=== PATIENT | female | born 1950 | race African-American/Black ===

== ENCOUNTER 2018-05-21 13:17 | Outpatient (CLI) | payer MEDICARE, OTHER ==
[~2018-05-21] VITALS: Ht 175.3 cm; Wt 70.8 kg
[2018-05-21 15:22] VITALS: BP 145/66
[2018-05-21] MEDS ORDERED: CONTOUR1 EACH MC (15:29)
[2018-05-21] MEDS ORDERED: AMLODIPINE BESY10 MG ORAL (15:29)
[2018-05-21] MEDS ORDERED: CRESTOR10 M2 ORAL (15:29)
[2018-05-21] MEDS ORDERED: CATAPRES0.1 MG ORAL (15:29)
[2018-05-21] MEDS ORDERED: GABAPENTIN100 MG ORAL (15:29)
[2018-05-21] MEDS ORDERED: JANUVIA25 MG ORAL (15:29)
[2018-05-21] MEDS ORDERED: ZETIA10 MG ORAL (15:29)
[2018-05-21] MEDS ORDERED: PLAVIX75 MG ORAL (15:29)
[2018-05-21] MEDS ORDERED: METOPROLOL TAR100 M1 ORAL (15:29)
[2018-05-21] MEDS ORDERED: LOSARTAN POTASS50 MG ORAL (15:29)
[2018-05-21] MEDS ORDERED: VITAMIN D1000 UNI1 ORAL (15:29)
--- NOTE | 2018-05-22 15:22 | GI Initial Consult Note ---
History of Present Illness General Date patient seen: May 21, 2018 Time patient seen: 15:00 Referring physician: YAYA Reason for Consultation: COLONOSCOPY Present Illness HPI 68 year old female patient presents today for colonoscopy screening. Patient has no history of colonoscopy. Presents today with no GI symptoms; denies abdominal pain, N/V/D or constipation. Denies any unintentional weight loss or changes in dietary habits. Home Meds Reported Medications Blood Sugar Diagnostic (CONTOUR) 1 Each Strip, 1 EACH MC, STRIP 05/21/18 Clonidine Hcl* (CATAPRES*) 0.1 Mg Tablet, 0.1 MG ORAL EVERY 6 HOURS, TAB 05/21/18 Sitagliptin* (JANUVIA*) 25 Mg Tablet, 50 MG ORAL DAILY, TAB 05/21/18 Amlodipine Besylate* (AMLODIPINE BESYLATE*) 10 Mg Tablet, 10 MG ORAL DAILY, TAB 05/21/18 Rosuvastatin Calcium* (CRESTOR*) 10 Mg Tablet, 10 MG ORAL DAILY, TAB 05/21/18 Ezetimibe (ZETIA*) 10 Mg Tablet, 10 MG ORAL BEDTIME, TAB 05/21/18 Cholecalciferol (Vitamin D3)* (VITAMIN D*) 1,000 Unit Tablet, ORAL DAILY, #30 TAB 05/21/18 Metoprolol Tartrate* (METOPROLOL TARTRATE*) 100 Mg Tablet, 100 MG ORAL EVERY 12 HOURS, TAB 05/21/18 Gabapentin* (GABAPENTIN*) 100 Mg Capsule, 100 MG ORAL THREE TIMES A DAY, CAP 05/21/18 Losartan Potassium* (LOSARTAN POTASSIUM*) 50 Mg Tablet, 50 MG ORAL DAILY, TAB 05/21/18 Clopidogrel Bisulfate* (PLAVIX*) 75 Mg Tablet, 75 MG ORAL DAILY, TAB 05/21/18 Med list reviewed/reconciled: Yes Allergies: Coded Allergies: No Known Allergies (Unverified , 05/21/18) Patient History History Provided By: Patient, Medical Record PMH Narrative CVA 2016 HTN DM Past Surgical History: Left Ectopic Social History: Denies: smoking, alcohol use, drug use, other Review of Systems All Other Systems: negative except mentioned in HPI Physical Exam Vital Signs Date Time Temp Pulse Resp B/P (MAP) Pulse Ox O2 Delivery O2 Flow Rate FiO2 05/21/18 15:22 98.1 53 16 145/66 100 Sp02 EP Interpretation: reviewed, normal General Appearance: well appearing, no apparent distress, alert Head: normocephalic EENT: PERRL/EOMI, normal ENT inspection Neck: supple Respiratory: normal breath sounds, no respiratory distress Cardiovascular: normal rate Gastrointestinal: normal inspection, non tender, soft, normal bowel sounds, non -distended Rectal: deferred Genitourinary: no CVA tenderness Musculoskeletal: normal inspection, back normal Neurologic: normal inspection, alert, oriented x3, responsive Psychiatric: normal inspection, judgement/insight normal, memory normal Skin: normal inspection, normal color, no rash, warm/dry, palpation normal, well hydrated Lymphatic: normal inspection, no adenopathy GI: Plan Problems: (1) Colonoscopy planned (2) CVA (cerebral vascular accident) (3) HTN (hypertension) (4) Diabetes mellitus Plan colonoscopy to be scheduled, patient will call to book. - CLD & (Nulytely/Suprep/Movi-Prep) prep instructions given and acknowledged by patient. - NPO @ [place] day prior procedure explained. will follow with additional recs post procedure. Seen with Dr. Cuello. Thank you for this patient referral. The patient was seen and examined at bedside and all new and available data was reviewed in the patients chart. I agree with the above findings, impression and plan. (Patient seen earlier today. Signature stamp does not reflect patient encounter time.). - MD Carolee RichardsW[facility] SE[facility]ATOR TENDER May 22, 2018 15:22
== END 2018-05-21 13:47 | disposition home or self-care (01) ==
LOC: PAN 13:17
DX: Z12.11 Encounter for screening for malignant neoplasm of colon (principal); I63.9 Cerebral infarction, unspecified; I10 Essential (primary) hypertension; E11.9 Type 2 diabetes mellitus without complications
CPT/HCPCS: 99202

== ENCOUNTER 2018-09-01 15:43 | Inpatient (IN) | payer MEDICARE, OTHER ==
[~2018-09-01] VITALS: Ht 175.3 cm; Wt 64.9 kg
[~2018-09-01 15:43] MED LIST: AMLODIPINE BESY10 MG ORAL; CATAPRES0.1 MG ORAL; CONTOUR1 EACH MC; CRESTOR10 M2 ORAL; GABAPENTIN100 MG ORAL; JANUVIA25 MG ORAL; LOSARTAN POTASS50 MG ORAL; METOPROLOL TAR100 M1 ORAL; PLAVIX75 MG ORAL; VITAMIN D1000 UNI1 ORAL; ZETIA10 MG ORAL
[2018-09-01] MEDS ORDERED: UNOBMED (15:56)
--- NOTE | 2018-09-01 16:05 | NUR ---
ED Nurse Note: patient was brought in by RA fron the DR's office, patient has impaired mobility, unsteady gait, AAO x 4, skin is dry, intact. per pt. she went for regular chek up and her Dr sent her to S ER. patient was placed in gown and connected to the monitor. will continue to monitor
[2018-09-01 16:10] VITALS: BP 250/124
--- NOTE | 2018-09-01 16:12 | Emergency Room Report ---
History of Present Illness General Chief Complaint: Dizziness Source: Patient Present Illness HPI Patient is a 68-year-old female sent to ER from physician's office after increased elevated blood pressure. Patient had been having increased dizziness as well as left lower extremity heaviness. Patient prior history of hypertension. she does not require not recall what medication she takes. She reported having a fall approximately 4 days ago. She states she has been taking BC powder for headaches. She reports having some difficulty with hearing. Allergies: Coded Allergies: No Known Allergies (Unverified , 09/01/18) Patient History Past Medical History: see triage record Last Menstrual Period: 12 YEARS AGO Now: No Reviewed Nursing Documentation: PMH: Agreed; PSxH: Agreed Nursing Documentation-PMH Past Medical History: No History, Except For Hx Hypertension: Yes Hx Diabetes: Yes Hx Cancer: No Hx Gastrointestinal Problems: No Hx Neurological Problems: Yes Hx Cerebrovascular Accident: Yes - 2015 Review of Systems All Other Systems: negative except mentioned in HPI Physical Exam Vital Signs Date Time Temp Pulse Resp B/P (MAP) Pulse Ox O2 Delivery O2 Flow Rate FiO2 09/01/18 15:51 99.0 81 16 250/124 96 Sp02 EP Interpretation: reviewed, normal General Appearance: normal inspection, well appearing, no apparent distress, alert, GCS 15 Head: atraumatic ENT: normal ENT inspection, hearing grossly normal, normal voice Neck: normal inspection, full range of motion, supple, no bony tend Respiratory: normal inspection, lungs clear, normal breath sounds, no respiratory distress, no retraction, no wheezing Cardiovascular #1: regular rate, rhythm, no edema Gastrointestinal: normal inspection, normal bowel sounds, non tender, soft, no guarding, no hernia Genitourinary: no CVA tenderness Musculoskeletal: normal inspection, back normal, normal range of motion Neurologic: normal inspection, alert, oriented x3, responsive, 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 Differential diagnosis include was not limited to CVA, hypertensive crisis, acute renal failure among others. Because of complexity of patient's case laboratory testing and imaging studies were ordered. Patient was noted to have CT imaging of the head read by radiology with multiple lacunar infarcts of indeterminate age. Patient is given medications for hypertension with some improvement. EKG interpreted by me showed normal sinus rhythm with a rate of 75 with left ventricular hypertrophy and nonspecific T wave changes. Patient was noted to have markedly elevated blood pressure. This had responded to medications patient given IV Lasix. BNP was noted to be markedly elevated.Patient's initial troponin was noted to be negative.Dr. Luis Mcfarlane was contacted for inpatient management due to primary care physician. Labs Test 09/01/18 16:15 White Blood Count 6.1 K/UL (4.8-10.8) Red Blood Count 5.02 M/UL (4.20-5.40) Hemoglobin 12.6 G/DL (12.0-16.0) Hematocrit 39.7 % (37.0-47.0) Mean Corpuscular Volume 79 FL (80-99) Mean Corpuscular Hemoglobin 25.1 PG (27.0-31.0) Mean Corpuscular Hemoglobin Concent 31.7 G/DL (32.0-36.0) Red Cell Distribution Width 14.6 % (11.6-14.8) Platelet Count 162 K/UL (150-450) Mean Platelet Volume 7.8 FL (6.5-10.1) Neutrophils (%) (Auto) 53.2 % (45.0-75.0) Lymphocytes (%) (Auto) 38.2 % (20.0-45.0) Monocytes (%) (Auto) 6.3 % (1.0-10.0) Eosinophils (%) (Auto) 1.3 % (0.0-3.0) Basophils (%) (Auto) 1.1 % (0.0-2.0) Urine Color Pale yellow Urine Appearance Clear Urine pH 5 (4.5-8.0) Urine Specific [place] 1.010 (1.005-1.035) Urine Protein 4+ (NEGATIVE) Urine Glucose (UA) Negative (NEGATIVE) Urine Ketones Negative (NEGATIVE) Urine Blood 2+ (NEGATIVE) Urine Nitrite Negative (NEGATIVE) Urine Bilirubin Negative (NEGATIVE) Urine Urobilinogen Normal MG/DL (0.0-1.0) Urine Leukocyte Esterase 2+ (NEGATIVE) Urine RBC 2-4 /HPF (0 - 2) Urine WBC 5-10 /HPF (0 - 2) Urine Squamous Epithelial Cells Few /LPF (NONE/OCC) Urine Bacteria Few /HPF (NONE) Sodium Level 139 MMOL/L (136-145) Potassium Level 3.7 MMOL/L (3.5-5.1) Chloride Level 102 MMOL/L (98-107) Carbon Dioxide Level 27 MMOL/L (21-32) Anion Gap 10 mmol/L (5-15) Blood Urea Nitrogen 28 mg/dL (7-18) Creatinine 2.3 MG/DL (0.55-1.30) Estimat Glomerular Filtration Rate 25.6 mL/min (>60) Glucose Level 89 MG/DL (74-106) Calcium Level 10.6 MG/DL (8.5-10.1) Total Bilirubin 1.5 MG/DL (0.2-1.0) Direct Bilirubin 0.3 MG/DL (0.0-0.3) Aspartate Amino Transf (AST/SGOT) 25 U/L (15-37) Alanine Aminotransferase (ALT/SGPT) 20 U/L (12-78) Alkaline Phosphatase 94 U/L (46-116) Troponin I 0.005 ng/mL (0.000-0.056) Pro-B-Type Natriuretic Peptide 1196 pg/mL (0-125) Total Protein 8.6 G/DL (6.4-8.2) Albumin 4.3 G/DL (3.4-5.0) Globulin 4.3 g/dL Albumin/Globulin Ratio 1.0 (1.0-2.7) Lipase 603 U/L (73-393) Thyroid Stimulating Hormone (TSH) 1.770 uiU/mL (0.358-3.740) Urine Opiates Screen Negative (NEGATIVE) Urine Barbiturates Screen Negative (NEGATIVE) Phencyclidine (PCP) Screen Negative (NEGATIVE) Urine Amphetamines Screen Negative (NEGATIVE) Urine Benzodiazepines Screen Negative (NEGATIVE) Urine Cocaine Screen Negative (NEGATIVE) Urine Marijuana (THC) Screen Negative (NEGATIVE) EKG Diagnostic Results Rate: normal - 75 Rhythm: NSR ST Segments: no acute changes Last Vital Signs Date Time Temp Pulse Resp B/P (MAP) Pulse Ox O2 Delivery O2 Flow Rate FiO2 09/01/18 15:51 99.0 81 16 250/124 96 Status: improved Disposition: ADMITTED INPATIENT Condition: Cabrera Smith MD Sep 01, 2018 16:11
--- NOTE | 2018-09-01 16:30 | NUR ---
ED Nurse Note: BLOOD SPECIMENS AND URINE SENT DOWN TO THE LAB.
[2018-09-01 16:49] LABS: APPEARANCE,URINE CLEAR; BILIRUBIN, URINE NEGATIVE (NEGATIVE); COLOR,URINE PALE YELLOW; GLUCOSE, URINE (UA) NEGATIVE (NEGATIVE); KETONES,URINE NEGATIVE (NEGATIVE); LEUKOCYTE ESTERASE ,URINE 2+ (NEGATIVE); NITRITE,URINE NEGATIVE (NEGATIVE); PH,URINE 5 (4.5-8.0); PROTEIN,URINE 4+ (NEGATIVE); UROBILINOGEN,URINE NORMAL MG/DL (0.0-1.0)
[2018-09-01 16:51] LABS: BASOPHILS % (AUTO) 1.1 % (0.0-2.0); EOSINOPHILS % (AUTO) 1.3 % (0.0-3.0); HEMATOCRIT 39.7 % (37.0-47.0); HEMOGLOBIN 12.6 G/DL (12.0-16.0); LYMPHOCYTES % (AUTO) 38.2 % (20.0-45.0); MEAN CORPUSCULAR VOLUME 79 FL (80-99); MONOCYTES % (AUTO) 6.3 % (1.0-10.0); NEUTROPHILS % (AUTO) 53.2 % (45.0-75.0); PLATELET COUNT 162 K/UL (150-450); RED BLOOD COUNT 5.02 M/UL (4.20-5.40); RED CELL DISTRIBUTION WIDTH 14.6 % (11.6-14.8); WHITE BLOOD COUNT 6.1 K/UL (4.8-10.8)
[2018-09-01 16:57] LABS: ANION GAP 10 mmol/L (5-15); BLOOD UREA NITROGEN 28 mg/dL (7-18); CALCIUM 10.6 MG/DL (8.5-10.1); CARBON DIOXIDE 27 MMOL/L (21-32); CHLORIDE 102 MMOL/L (98-107); CREATININE 2.3 MG/DL (0.55-1.30); POTASSIUM 3.7 MMOL/L (3.5-5.1); SODIUM 139 MMOL/L (136-145)
--- NOTE | 2018-09-01 17:05 | Diagnostic Imaging Report ---
Indications: Headache and dizziness Technique: Spiral acquisitions obtained through the brain. Angled axial and coronal 5 x 5 mm slices were reconstructed. Total dose length product 1372.57 mGycm. CTDI vol(s) 70.38 mGy. Dose reduction achieved using automated exposure control Comparison: None. Findings: No acute intercranial hemorrhage nor edema. No mass effect nor midline shift. Visualized orbits are unremarkable. There is ethmoid sinus disease. The calvarium is intact. Olivia-white differentiation is normal. Impression: Age-indeterminate, although suspect old, right basal ganglia and internal capsule lacunar infarcts. MRI may be useful to clarify acuity if clinically indicated Negative for acute intracranial bleed or mass effect The CT scanner at [facility] is accredited by the [employer] and the scans are performed using protocols designed to limit radiation exposure to as low as reasonably achievable to attain images of sufficient resolution adequate for diagnostic evaluation.
[2018-09-01 17:13] LABS: ALANINE AMINOTRANSFERASE 20 U/L (12-78); ALBUMIN 4.3 G/DL (3.4-5.0); ALKALINE PHOSPHATASE 94 U/L (46-116); ASPARTATE AMINO TRANSFERASE 25 U/L (15-37); BILIRUBIN,TOTAL 1.5 MG/DL (0.2-1.0)
[2018-09-01 17:14] LABS: BILIRUBIN,DIRECT 0.3 MG/DL (0.0-0.3)
[2018-09-01] MEDS ORDERED: CRESTOR40 MG ORAL (17:57)
[2018-09-01] MEDS ORDERED: ASCORBIC ACID500 MG ORAL (18:02)
--- NOTE | 2018-09-01 18:16 | NUR ---
ED Nurse Note: patient' BP ia 223/110, patient refused Lasix. RN explained effect of that medication, but any ways pt. refused, ERMD noyified
--- NOTE | 2018-09-01 18:49 | NUR ---
ED Nurse Note: patient decided to take Lasix, CECI notifyed
--- NOTE | 2018-09-01 19:18 | NUR ---
HAND-OFF: Report given to JILLIAN Merlos. No s/s of distress.
[2018-09-01 19:25] VITALS: BP 170/81
--- NOTE | 2018-09-01 19:30 | NUR ---
ED Nurse Note: Flat affect noted.
--- NOTE | 2018-09-01 19:30 | NUR ---
Note undone in EDM - 09/02/18 at 0419 by STEPHANIE ED Nurse Note: PT is alert and oriented times 4. no skin issues noted. pt pupiles are round and reactive to light. no deformities noted to mouth. pt heart tones are within normal limits with S1 and S2 noted. pts lung sounds are clear on all quadrats. 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 cap refill on both hands is less than 3 with pulse and sensation noted. pt cap refill is less than 3. pt bowel sounds are within normal limts on all 4 quadrants. no abnormalities noted on vaginal or rectal area.pt L leg strength is 4/5 with weakness noted. cap refill is less than 3 on both feet with pulse and sensation noted. pt is able to ambulate with a weak gait. fall precautions are taken into affect with the bed set on the lowest settings and call light within reach. vital signs are stable.
--- NOTE | 2018-09-01 19:30 | NUR ---
ED Nurse Note: Received, Pt is alert and oriented times 4, PERRLA; Clarita equaly and spontaniously. monitor SR, no ectopy. Lungs sounds clear and equal. Abdomen soft, non tender. Pt is able to ambulate with minimal assist. Skin intact. BP at this time is 170/81.
[2018-09-01 19:32] VITALS: BP 167/92
[2018-09-01 21:26] VITALS: BP 165/81
--- NOTE | 2018-09-01 21:30 | NUR ---
Michael stewart in EDM - 09/02/18 at 0309 by STEPHANIE ED Nurse Note: MD JAVIER was called for admitting order. did not answer.
--- NOTE | 2018-09-01 21:30 | NUR ---
ED Nurse Note: MD JAVIER was called for admitting order.
[2018-09-01 23:21] VITALS: BP 168/83
--- NOTE | 2018-09-01 23:35 | NUR ---
Michael stewart in EDM - 09/02/18 at 0307 by STEPHANIE ED Nurse Note: MD JAVIER was texted for admitting orders, no response.
--- NOTE | 2018-09-01 23:35 | NUR ---
Michael stewart in EDM - 09/02/18 at 0309 by STEPHANIE ED Nurse Note: MD JAVIER was called for admitting order.
--- NOTE | 2018-09-01 23:35 | NUR ---
ED Nurse Note: MD JAVIER was texted for admitting orders.
--- NOTE | 2018-09-01 23:42 | NUR ---
Michael stewart in EDM - 09/02/18 at 0307 by STEPHANIE ED Nurse Note: MD JAVIER was called for admitting order. did not answer.
[2018-09-02] VITALS (8 sets, daily range): BP systolic 118–157; BP diastolic 66–95
[2018-09-02] MEDS ORDERED: cloNIDine 0.2mg Tab ORAL ONE (00:15)
--- NOTE | 2018-09-02 06:27 | NUR ---
ED Nurse Note: Dr. Mcfarlane called and will come in.
--- NOTE | 2018-09-02 07:30 | NUR ---
ED Nurse Note: pt care assummed. pt awake and oriented x 4. relates no dyspnea. states right-sided headache with pressure to right ear and lateral neck area. vss. pt awaiting eval by pmd for further orders. pt assisted to bedside commode. tolerates well. pt noted to have swollen upper lip, pt states she fell last week and sustained injury then. denies cp. denies dizziness with getting out of bed.
--- NOTE | 2018-09-02 11:00 | NUR ---
NURSE NOTES: Report received from LINH Mireles RN. Patient to be on the floor within 10min.
--- NOTE | 2018-09-02 11:04 | NUR ---
ED Nurse Note: pt report given to tele. pt preapred to go to floor with rn/acls protocol. pt remains a/ox4 upon transport
--- NOTE | 2018-09-02 11:10 | NUR ---
NURSE NOTES: Patient came in on the floor with hospital bed. Belongings checked with patient and JILLIAN Mireles. Signed and filed. driving teacher applied. Patient came in for uncontrolled HTN, now BP 137/78, P 73. VS stable. Patient in RA, denies any SOB or pain. Oriented to hospital rules. Bed on lowest position, side rails upx2, brakes engaged. Call light within easy reach.
--- NOTE | 2018-09-02 14:41 | NUR ---
ST NOTE: BEDSIDE SWALLOW EVAL RECEIVED BEDSIDE SWALLOW EVAL ORDER CHART REVIEWED PRIOR THE EVALUATION PT IS A 68-YEAR-OLD FEMALE WHO WAS ADMITTED DUE TO HYPERTENSIVE CRISIS. DYSPHAGIA RISK FACTORS: CVA(2016), MULTIPLE LACUNAR INFARCTS, HTN, DM, CARDIAC DISORDER. PER CT HEAD: AGE-INDETERMINATE ALTHOUGH SUSPECT OLD, R BASAL GANGLIA AND INTERNAL CAPSULE LACUNAR INFARCT. PLOF: PT RESIDES AT HOME. CURRENT STATUS: PT SEEN AT BEDSIDE IN PM. ALERT, COOPERATIVE, SEEMS DEPRESSED. PER PT, HER MEMORY SEEMS DECLINING, AND "HARD FOR HER TO THINK" PER RN, PT ATE 50% OF LUNCH WITHOUT ANY DIFFICULTY. PER PT, FELL A FEW TIMES AT HOME, HAS OVERALL WEAKNESS. SOFT VOICE IS NOTED. DISORGANIZED THOUGHTS AND POOR INSIGHT WERE ALSO NOTED. GIVEN PO TRIALS: THIN(CUP-SELF), PUREE(TSP) AND CRACKER (ONE BITE) INITIAL IMPRESSION: GOOD DENTITION SLOW BUT FUNCTIONAL MASTICATION TIME MIN INCREASED ORAL TRANSIT TIME AND OROPHARYNGEAL TRANSIT TIME, FAIR TO GOOD LARYNGEAL ELEVATION, NO OVERT S/S OF ASPIRATION. OVERALL, PT'S SWALLOWING SEEMS FUNCTIONAL. DUE TO PT HAS H/O CVA AND CURRENT HYPERTENSIVE CRISIS, PT HAS RISK FOR (SILENT) ASPIRATION. RECOMMENDATIONS: 1. CHANGE DIET TO CARDIAC SOFT, EASY CHEW WITH THIN LIQUIDS DIET 2. STRICT ASPIRATION PRECAUTIONS WITH SUPERVISION 3. VIDEOSWALLOW STUDY IF NEEDED. 4. SPEECH/LANGUAGE/COGNITION EVAL AND TX. 5. CONSIDER PSYCH EVAL RE: PT'S EMOTION. D/W PT AND RNCASSIDY POSTED ASPIRATION PRECAUTIONS SIGN.
--- NOTE | 2018-09-02 15:53 | Cardiology Report ---
APPROVED REPORT EKG Measurement Heart [id number] Normal sinus rhythm Voltage criteria for left ventricular hypertrophy Cannot rule out Septal infarct, age undetermined Abnormal ECG
--- NOTE | 2018-09-02 19:20 | NUR ---
HAND-OFF: Report given to JILLIAN Obrien. Addendum: 09/02/18 at 2019 by LAZARO EUCEDA RN RN charting in wrong patient.
[2018-09-02] MEDS: Atorvastatin 80mg tab ORAL SCH (20:40)
[2018-09-02] MEDS: Heparin 5000 units/ml inj SUBQ SCH (20:41)
[2018-09-02] MEDS: NovoLOG Insulin Flexpen SUBQ SCH (21:00)
--- NOTE | 2018-09-02 21:17 | NUR ---
CASE MANAGEMENT: REVIEW 68/F PRESENTED TO ED FROM HOME CC: DIZZINESS SI: UNCONTROLLED HYPERTENSION T 99.0 HR 81 RR 20 BP 250/124 SAT 96% ROOM AIR BUN 28 CR 2.3 IS: CLONIDINE 0.2MG PO X1 LASIX 20MG IV X1 NORVASC 10MG PO X1 HYDRALAZINE 20MG IV X1 PATIENT ADMITTED TO TELEMETRY UNIT 09/01/2018 DCP: PATIENT IS FROM HOME
--- NOTE | 2018-09-02 22:45 | History and Physical Report ---
DATE OF ADMISSION: 09/01/2018 REASON FOR ADMISSION: Blood pressure out of control, multiple falls, possible subacute stroke. HISTORY: This is a 68-year-old female sent over to the emergency room due to significantly elevated blood pressure of over 200. The patient also had worsening dizziness and difficulty with ambulating. The patient unable to care for herself at home. The patient reports frequent falls and significant forehead and lip edema as a result. She has been taking pain medications and also has some difficulty hearing. In the emergency room, the patient did undergo evaluation and testing and now admitted for further evaluation and further optimization. She also was noted to have elevated renal function of unclear timeline. The patient overnight improved with blood pressure and hemodynamics improved. The patient's care discussed and reviewed. The patient has been under the care in the office setting. PAST MEDICAL HISTORY: Notable for abnormal EKG, coronary artery disease, diabetes, hypercholesterolemia, hypertension, stroke. MEDICATIONS: Reviewed and reconciled. ALLERGIES: Reviewed and reconciled. PAST SURGICAL HISTORY: Negative. FAMILY HISTORY: Notable for stroke and kidney failure. HABITS: Nonsmoker, nondrinker. SOCIAL SETTING: She is and has 2 children, but lives alone. REVIEW OF SYSTEMS: All 10 points reviewed. The patient with increasing fatigue, swelling of the lip, difficulty swallowing, significant joint and muscle pain. The patient had multiple falls. PHYSICAL EXAMINATION: GENERAL: Appears to be chronically ill. VITAL SIGNS: Blood pressure 118/66, pulse 73, respiratory rate 16, saturations 99%, temperature 98. HEENT: Negative. Extraocular movements are grossly intact. The patient has lip swelling on examination and some forehead asymmetry. NECK: Supple. LUNGS: Fairly clear and symmetric. No rhonchi or wheezes. CARDIAC: Normal S1, S2. Regular rate and rhythm without murmurs, rubs, or gallops. ABDOMEN: Soft, nontender, nondistended. EXTREMITIES: No cyanosis or clubbing. NEUROLOGIC: The patient has unsteady gait. LABORATORY DATA: The patient's laboratory data reviewed. BUN 28 and creatinine 2.3. BNP 1196. The albumin is within normal limits. Chemistry is otherwise negative. CBC otherwise fairly negative and reviewed. The patient's imaging noted and reviewed. The patient's CT of the head had shown old right basal ganglia and internal capsule lacunar infarcts, but no other acute changes. IMPRESSION: Likely old strokes, frequent falls, unsteady gait, mild facial injuries, hypertensive crisis, left ventricular hypertrophy, chronic renal failure. RECOMMENDATIONS: Supportive care. IV hydration. PT and OT. Pain control. Blood pressure control. Monitor clinically and recommend. Monitor laboratories and recommend, and plan to discharge possibly to SNF once fully evaluated. Luis Mcfarlane M.D. DR: Camila JOB#: [id number] CC: MYA
[2018-09-03] VITALS (8 sets, daily range): BP systolic 145–190; BP diastolic 68–92
[2018-09-03] MEDS: NovoLOG Insulin Flexpen SUBQ SCH ×4 (06:23→21:00)
--- NOTE | 2018-09-03 07:05 | NUR ---
HAND-OFF: Report given to JILLIAN Mcintosh.
[2018-09-03 07:09] LABS: BASOPHILS % (AUTO) 0.4 % (0.0-2.0); EOSINOPHILS % (AUTO) 2.3 % (0.0-3.0); HEMATOCRIT 30.1 % (37.0-47.0); HEMOGLOBIN 9.5 G/DL (12.0-16.0); LYMPHOCYTES % (AUTO) 45.6 % (20.0-45.0); MEAN CORPUSCULAR VOLUME 79 FL (80-99); MONOCYTES % (AUTO) 7.4 % (1.0-10.0); NEUTROPHILS % (AUTO) 44.2 % (45.0-75.0); PLATELET COUNT 146 K/UL (150-450); RED BLOOD COUNT 3.81 M/UL (4.20-5.40); RED CELL DISTRIBUTION WIDTH 14.7 % (11.6-14.8); WHITE BLOOD COUNT 4.1 K/UL (4.8-10.8)
--- NOTE | 2018-09-03 07:10 | NUR ---
NURSE NOTES: Report received from JILLIAN Shields. Patient awake, in RA, having breakfast. Denies any pain or SOB. IV running NS at 100mL/hr, site intact. Bed on lowest position, side rails upx2, brakes engaged, alarm on. Call light within easy reach.
[2018-09-03 08:01] LABS: ALANINE AMINOTRANSFERASE 12 U/L (12-78); ALBUMIN 2.9 G/DL (3.4-5.0); ALBUMIN/GLOBULIN RATIO 0.9 (1.0-2.7); ALKALINE PHOSPHATASE 67 U/L (46-116); ANION GAP 8 mmol/L (5-15); ASPARTATE AMINO TRANSFERASE 15 U/L (15-37); BILIRUBIN,TOTAL 0.7 MG/DL (0.2-1.0); BLOOD UREA NITROGEN 28 mg/dL (7-18); CALCIUM 8.8 MG/DL (8.5-10.1); CARBON DIOXIDE 26 MMOL/L (21-32); CHLORIDE 108 MMOL/L (98-107); CREATININE 2.1 MG/DL (0.55-1.30); POTASSIUM 3.9 MMOL/L (3.5-5.1); SODIUM 142 MMOL/L (136-145)
[2018-09-03] MEDS: Heparin 5000 units/ml inj SUBQ SCH ×2 (09:00→21:29)
[2018-09-03] MEDS: Vitamin D 1000 IU Tab ORAL SCH (09:07)
[2018-09-03] MEDS: Ascorbic Acid 500mg tab ORAL SCH (09:07)
[2018-09-03] MEDS: sitaGLIPtin 25mg tab ORAL SCH (09:07)
--- NOTE | 2018-09-03 10:30 | NUR ---
REHAB MED PT NOTE CONSULT DHIRAJ CRANE COMPLTED, PATIENT WILL BENEFIT FROM SKILLED PT DURING SAY FOR RETURN TO PLOF. RECOMMEND HOME AT DC WITH PT. DUYEN DIXON PT DPT
--- NOTE | 2018-09-03 11:43 | Consultation ---
History of Present Illness General Chief Complaint: Dizziness Present Illness HPI 68 yo female with hx of depression and anxiety for years and hbp. the pt was admitted for hbp. the pt pw depressed mood and anxiety. the pt was tearful during the eval and stated that the sxs started when the pt lost her older son. The pt pw depressed mood, anhedonia, low energy. The pt has no si/hi. the pt stated that she has low appetite and weight loss. The pt stated that she would like to take meds since she does not sleep and has HAs. The pt was educated about reflection program and the pt is interested. Allergies: Coded Allergies: No Known Allergies (Unverified , 09/01/18) Medication History Scheduled Ascorbic Acid* (Ascorbic Acid*), 500 MG ORAL DAILY, (Reported) Cholecalciferol (Vitamin D3)* (Vitamin D*), 5,000 UNITS ORAL DAILY, (Reported) Clonidine Hcl* (Catapres*), 0.1 MG ORAL EVERY 6 HOURS, (Reported) Clopidogrel Bisulfate* (Plavix*), 75 MG ORAL DAILY, (Reported) Ezetimibe (Zetia*), 10 MG ORAL BEDTIME, (Reported) Metoprolol Tartrate* (Metoprolol Tartrate*), 100 MG ORAL DAILY, (Reported) Rosuvastatin Calcium* (Crestor*), 40 MG ORAL DAILY, (Reported) Sitagliptin* (Januvia*), 50 MG ORAL DAILY, (Reported) Miscellaneous Medications Blood Sugar Diagnostic (Contour), 1 EACH MC, (Reported) Discontinued Medications Amlodipine Besylate* (Amlodipine Besylate*), 10 MG ORAL DAILY, (Reported) Discontinued Reason: Pt stopped taking med Gabapentin* (Gabapentin*), 100 MG ORAL THREE TIMES A DAY, (Reported) Discontinued Reason: Pt stopped taking med Losartan Potassium* (Losartan Potassium*), 50 MG ORAL DAILY, (Reported) Discontinued Reason: Pt stopped taking med Rosuvastatin Calcium* (Crestor*), 10 MG ORAL DAILY, (Reported) Discontinued Reason: Prescription changed Patient History Limited by: medical condition History Provided By: Medical Record, PMD Healthcare decision maker Resuscitation status Full Code Advanced Directive on File No Past Medical/Surgical History Past Medical/Surgical History: (1) Diabetes mellitus (2) HTN (hypertension) (3) CVA (cerebral vascular accident) (4) Colonoscopy planned (5) LVH (left ventricular hypertrophy) (6) Multiple lacunar infarcts (7) Hypertensive crisis, unspecified (8) Anxiety disorder (9) MDD (major depressive disorder), recurrent episode, moderate Review of Systems Psychiatric: Reports: prior hx, anxiety, depressed feelings, emotional problems Physical Exam General Appearance: WD/WN, no apparent distress, alert Neurologic: oriented x 3, responsive, depressed affect Last 24 Hour Vital Signs Date Time Temp Pulse Resp B/P (MAP) Pulse Ox O2 Delivery O2 Flow Rate FiO2 09/03/18 09:10 190/95 09/03/18 09:08 77 190/95 09/03/18 09:00 Room Air 09/03/18 08:00 70 09/03/18 08:00 97.8 77 18 190/75 (113) 99 09/03/18 05:33 165/88 09/03/18 04:00 69 09/03/18 04:00 97.5 69 18 146/85 (105) 97 09/03/18 00:00 97.0 71 18 148/86 (106) 98 09/03/18 00:00 71 09/02/18 21:00 Room Air 09/02/18 20:00 98.5 76 20 149/79 (102) 98 09/02/18 20:00 76 09/02/18 16:00 75 Intake and Output 09/02/18 09/03/18 19:00 07:00 Intake Total 480 ml 1190 ml Output Total 1500 ml Balance -1020 ml 1190 ml Intake Oral 480 ml 240 ml IV Total 950 ml Output Urine Total 1500 ml # Voids 3 3 Laboratory Tests Test 09/03/18 04:45 White Blood Count 4.1 K/UL (4.8-10.8) L Red Blood Count 3.81 M/UL (4.20-5.40) L Hemoglobin 9.5 G/DL (12.0-16.0) L Hematocrit 30.1 % (37.0-47.0) L Mean Corpuscular Volume 79 FL (80-99) L Mean Corpuscular Hemoglobin 25.1 PG (27.0-31.0) L Mean Corpuscular Hemoglobin Concent 31.7 G/DL (32.0-36.0) L Red Cell Distribution Width 14.7 % (11.6-14.8) Platelet Count 146 K/UL (150-450) L Mean Platelet Volume 7.8 FL (6.5-10.1) Neutrophils (%) (Auto) 44.2 % (45.0-75.0) L Lymphocytes (%) (Auto) 45.6 % (20.0-45.0) H Monocytes (%) (Auto) 7.4 % (1.0-10.0) Eosinophils (%) (Auto) 2.3 % (0.0-3.0) Basophils (%) (Auto) 0.4 % (0.0-2.0) Sodium Level 142 MMOL/L (136-145) Potassium Level 3.9 MMOL/L (3.5-5.1) Chloride Level 108 MMOL/L (98-107) H Carbon Dioxide Level 26 MMOL/L (21-32) Anion Gap 8 mmol/L (5-15) Blood Urea Nitrogen 28 mg/dL (7-18) H Creatinine 2.1 MG/DL (0.55-1.30) H Estimat Glomerular Filtration Rate 28.5 mL/min (>60) Glucose Level 103 MG/DL (74-106) Calcium Level 8.8 MG/DL (8.5-10.1) Total Bilirubin 0.7 MG/DL (0.2-1.0) Aspartate Amino Transf (AST/SGOT) 15 U/L (15-37) Alanine Aminotransferase (ALT/SGPT) 12 U/L (12-78) Alkaline Phosphatase 67 U/L (46-116) Total Protein 6.2 G/DL (6.4-8.2) L Albumin 2.9 G/DL (3.4-5.0) L Globulin 3.3 g/dL Albumin/Globulin Ratio 0.9 (1.0-2.7) L Height (Feet): 5 Height (Inches): 9.00 Weight (Pounds): 143 Medications Current Medications Medications (Trade) Dose Ordered Sig/Lloyd Route PRN Reason Start Time Stop Time Status Last Admin Dose Admin Acetaminophen (Tylenol) 650 mg Q6H PRN ORAL Mild Pain/Temp > 100.5 09/02/18 21:00 10/02/18 20:59 09/02/18 22:21 Ascorbic Acid (Vitamin C) 500 mg DAILY ORAL 09/03/18 09:00 10/03/18 08:59 09/03/18 09:07 Atorvastatin Calcium (Lipitor) 80 mg BEDTIME ORAL 09/02/18 21:00 10/02/18 20:59 09/02/18 20:40 Clonidine HCl (Catapres Tab) 0.1 mg Q4H PRN ORAL For High Blood Pressure 09/02/18 15:30 10/02/18 15:29 09/03/18 09:10 Clopidogrel Bisulfate (Plavix) 75 mg DAILY ORAL 09/03/18 09:00 10/03/18 08:59 09/03/18 09:07 Dextrose (Dextrose 50%) 25 ml Q30M PRN IV Hypoglycemia 09/02/18 20:45 10/02/18 20:44 Dextrose (Dextrose 50%) 50 ml Q30M PRN IV Hypoglycemia 09/02/18 20:45 10/02/18 20:44 EZETIMIBE (Zetia) 10 mg BEDTIME ORAL 09/02/18 21:00 10/02/18 20:59 09/02/18 20:39 Heparin Sodium (Porcine) (Heparin 5000 units/ml) 5,000 units EVERY 12 HOURS SUBQ 09/02/18 21:00 10/02/18 20:59 09/02/18 20:41 Insulin Aspart (NovoLOG) BEFORE MEALS AND HS SUBQ 09/02/18 21:00 10/02/18 20:59 Metoprolol Tartrate (Lopressor) 100 mg DAILY ORAL 09/03/18 09:00 10/03/18 08:59 09/03/18 09:08 Sitagliptin Phosphate (Januvia) 50 mg DAILY ORAL 09/03/18 09:00 10/03/18 08:59 09/03/18 09:07 Sodium Chloride 1,000 ml @ 100 mls/hr Q10H IV 09/02/18 12:00 10/02/18 11:59 09/03/18 02:13 Vitamin D (Vitamin D) 1,000 intlu DAILY ORAL 09/03/18 09:00 10/03/18 08:59 09/03/18 09:07 Assessment/Plan Problem List: (1) Anxiety disorder ICD Codes: F41.9 - Anxiety disorder, unspecified SNOMED: 105378528 (2) MDD (major depressive disorder), recurrent episode, moderate ICD Codes: F33.1 - Major depressive disorder, recurrent, moderate SNOMED: 41228980, 969786925 Status: not improved, unchanged Assessment/Plan Lexapro 10mg po qam Elavil 25mg po qhs/insomnia/LEWIS Refer to [facility] program provided ro/Demetria Castellanos MD Sep 03, 2018 11:43
--- NOTE | 2018-09-03 13:07 | NUR ---
Social Service Note SW met with patient to discuss referral to [facility] outpatient IOP as recommended by Dr. Hickman. Patient states she has no prior history of mental health disorder. Patient states she is struggling with family dynamics at home and would like to gain good coping skills in a group setting. Referral made to program clerk who will meet with patient this afternoon. Patient states her brother has moved into her family home but hasn't provided much assistance. Patient states she is ashamed that she hasn't been taking her medication. Patient is reluctant to going to SNF for rehab. Patient is agreeable to home health PT or going to PT in an outpatient setting. SW provided emotional support. CAMILO discussed with Dr. Mcfarlane. Patient is a full code and doesn't have an advance directive. Patient's son [phone] is patient's emergency contact. Will continue to be available as needed.
--- NOTE | 2018-09-03 17:41 | General Progress Note ---
Assessment/Plan Assessment/Plan IMPRESSION: Likely old strokes, frequent falls, unsteady gait, mild facial injuries, hypertensive crisis, left ventricular hypertrophy, chronic renal failure. PLAN improved care as is dc planning in am PT psych follow up pain management impression, plan, and exam edited and reviewed in detail care discussed with RN Subjective Allergies: Coded Allergies: No Known Allergies (Unverified , 09/01/18) Subjective seen earlier wants to go home and not snf Objective Last 24 Hour Vital Signs Date Time Temp Pulse Resp B/P (MAP) Pulse Ox O2 Delivery O2 Flow Rate FiO2 09/03/18 12:00 97.2 64 18 147/92 (110) 99 09/03/18 12:00 61 09/03/18 09:10 190/95 09/03/18 09:08 77 190/95 09/03/18 09:00 Room Air 09/03/18 08:00 70 09/03/18 08:00 97.8 77 18 190/75 (113) 99 09/03/18 05:33 165/88 09/03/18 04:00 69 09/03/18 04:00 97.5 69 18 146/85 (105) 97 09/03/18 00:00 97.0 71 18 148/86 (106) 98 09/03/18 00:00 71 09/02/18 21:00 Room Air 09/02/18 20:00 98.5 76 20 149/79 (102) 98 09/02/18 20:00 76 Intake and Output 09/02/18 09/03/18 19:00 07:00 Intake Total 480 ml 1190 ml Output Total 1500 ml Balance -1020 ml 1190 ml Intake Oral 480 ml 240 ml IV Total 950 ml Output Urine Total 1500 ml # Voids 3 3 Laboratory Tests 09/03/18 04:45: White Blood Count 4.1L, Red Blood Count 3.81L, Hemoglobin 9.5L, Hematocrit 30.1L , Mean Corpuscular Volume 79L, Mean Corpuscular Hemoglobin 25.1L, Mean Corpuscular Hemoglobin Concent 31.7L, Red Cell Distribution Width 14.7, Platelet Count 146L, Mean Platelet Volume 7.8, Neutrophils (%) (Auto) 44.2L, Lymphocytes (%) (Auto) 45.6H, Monocytes (%) (Auto) 7.4, Eosinophils (%) (Auto) 2.3, Basophils (%) (Auto) 0.4, Sodium Level 142, Potassium Level 3.9, Chloride Level 108H, Carbon Dioxide Level 26, Anion Gap 8, Blood Urea Nitrogen 28H, Creatinine 2.1H, Estimat Glomerular Filtration Rate 28.5, Glucose Level 103, Calcium Level 8.8, Total Bilirubin 0.7, Aspartate Amino Transf (AST/SGOT) 15, Alanine Aminotransferase (ALT/SGPT) 12, Alkaline Phosphatase 67, Total Protein 6.2L, Albumin 2.9L, Globulin 3.3, Albumin/Globulin Ratio 0.9L Height (Feet): 5 Height (Inches): 9.00 Weight (Pounds): 143 Objective WDWN NAD clear breath sounds bilaterally without rhonchi or wheeze [id number] without MRG NABS nontender no HSM no CCE nonfocal Luis Mcfarlane MD Sep 03, 2018 17:41
--- NOTE | 2018-09-03 19:15 | NUR ---
HAND-OFF: Report given to JILLIAN Shields. Patient in stable condition. Plan of care endorsed.
--- NOTE | 2018-09-03 20:25 | NUR ---
NURSE NOTES: received pt from JILLIAN Mcintosh. Pt stable and awake. Will continue with plan of care.
[2018-09-03] MEDS: Atorvastatin 80mg tab ORAL SCH (21:30)
[2018-09-04] VITALS (8 sets, daily range): BP systolic 138–188; BP diastolic 81–106
--- NOTE | 2018-09-04 04:45 | NUR ---
NURSE NOTES: Pt's BP is elevated in the 180s/90s. Pt is asymptomatic. No c/o chest pain. No change in LOC. Left Dr. Denys abbasi voicemail, awaiting for call back.
[2018-09-04] MEDS: NovoLOG Insulin Flexpen SUBQ SCH ×2 (06:30→13:06)
--- NOTE | 2018-09-04 07:10 | NUR ---
NURSE NOTES: Report received from JILLIAN Shields. Patient AOx4, awake, having breakfast. In RA, denies SOB or any pain. IV patent, flushed and SL. Bed on lowest position, side rails upx2, brakes engaged. Reminder given to patient not to leave bed without help. Call light placed within easy reach.
--- NOTE | 2018-09-04 07:26 | NUR ---
HAND-OFF: Report given to JILLIAN Mcintosh.
[2018-09-04] MEDS: Heparin 5000 units/ml inj SUBQ SCH (09:00)
[2018-09-04] MEDS: Ascorbic Acid 500mg tab ORAL SCH (09:51)
[2018-09-04] MEDS: Vitamin D 1000 IU Tab ORAL SCH (09:51)
[2018-09-04] MEDS: sitaGLIPtin 25mg tab ORAL SCH (09:52)
--- NOTE | 2018-09-04 10:11 | NUR ---
NURSE NOTES: Dr. Mcfarlane made aware of Patient's lab results.
--- NOTE | 2018-09-04 10:29 | General Progress Note ---
Assessment/Plan Problem List: (1) MDD (major depressive disorder), recurrent episode, moderate ICD Codes: F33.1 - Major depressive disorder, recurrent, moderate SNOMED: 51555130, 835096158 (2) Anxiety disorder ICD Codes: F41.9 - Anxiety disorder, unspecified SNOMED: 178576056 Status: unchanged Assessment/Plan Elavil 25mg po qhs Lexapro 10mg po qam the pt was referred to [facility] script in the chart Subjective Neurologic/Psychiatric: Reports: anxiety, depressed, emotional problems Allergies: Coded Allergies: No Known Allergies (Unverified , 09/01/18) Subjective The pt is anxious and depressed. the pt stated that she has been having these sxs for years but never seen an md or therapist. the pt stated that she has had adames for years. the pt stated the sxs started after she lost her son. the pts headache "is gone" the pt would like to stay on meds and asked for script the pt stated that she lost weight due to lack of appetite Objective Last 24 Hour Vital Signs Date Time Temp Pulse Resp B/P (MAP) Pulse Ox O2 Delivery O2 Flow Rate FiO2 09/04/18 09:52 64 153/84 09/04/18 09:51 64 153/84 09/04/18 08:00 97.7 64 18 153/84 (107) 95 09/04/18 06:30 62 151/86 (107) 09/04/18 05:49 167/106 09/04/18 05:30 60 167/106 (126) 09/04/18 04:30 97.2 60 18 188/90 (122) 96 09/04/18 04:00 52 09/04/18 02:15 154/88 (110) 09/04/18 01:46 179/86 09/04/18 01:30 60 179/86 (117) 09/04/18 00:00 60 09/04/18 00:00 97.9 60 18 150/88 (108) 99 09/03/18 22:15 68 151/71 (97) 09/03/18 21:30 185/68 09/03/18 21:30 64 185/68 (107) 09/03/18 21:00 Room Air 09/03/18 20:00 63 09/03/18 20:00 97.7 63 18 148/76 (100) 99 09/03/18 16:00 65 09/03/18 16:00 97.7 63 18 145/78 (100) 99 09/03/18 12:00 97.2 64 18 147/92 (110) 99 09/03/18 12:00 61 Intake and Output 09/03/18 09/04/18 19:00 07:00 Intake Total 360 ml 500 ml Output Total 550 ml Balance -190 ml 500 ml Intake Oral 360 ml IV Total 500 ml Output Urine Total 550 ml # Voids 3 Height (Feet): 5 Height (Inches): 9.00 Weight (Pounds): 143 General Appearance: WD/WN, no apparent distress, alert Neurologic: oriented x 3, responsive, depressed affect Demetria Hickman MD Sep 04, 2018 10:29
--- NOTE | 2018-09-04 11:05 | NUR ---
NURSE NOTES: Patient's VS stable. Informed Patient of discharge planning. Patient informed family member. DC planning will be carried out.
--- NOTE | 2018-09-04 11:14 | NUR ---
*-* DISCHARGE PLANNING *-* PATIENT HAS BEEN REFERRED TO: [facility] P: F: [phone] Addendum: 09/04/18 at 1421 by VU VEGA CM SPOKE TO [facility] THEY HAVE ACCEPTED THE PATIENT AND WILL FOLLOW
--- NOTE | 2018-09-04 14:20 | NUR ---
NURSE NOTES: Patient's VS stable. case monitor removed. IV and ID band removed. Patient's belongings checked with patient, signed by both Patient and RN and filed. Patient's package prepared signed and given to patient. Prescription from Dr. Hickman given to patient. Medication teaching done. Patient left the floor on a wheelchair, safely accompanied by RN. Son picked up patient.
--- NOTE | 2018-09-04 14:25 | NUR ---
CHARGE NURSE NOTES: Verified w/ Dr Mcfarlane regarding Dr Parker's order for the 24 hr urine collection. Per MD, pt needs to be D/C today.
--- NOTE | 2018-09-04 16:57 | General Progress Note ---
Assessment/Plan Assessment/Plan IMPRESSION: Likely old strokes, frequent falls, unsteady gait, mild facial injuries, hypertensive crisis, left ventricular hypertrophy, chronic renal failure. PLAN dc home home health fall precautions resume home meds psych follow up pain management impression, plan, and exam edited and reviewed in detail care discussed with RN Subjective Allergies: Coded Allergies: No Known Allergies (Unverified , 09/01/18) Subjective seen earlier wants to go home and overall improved Objective Last 24 Hour Vital Signs Date Time Temp Pulse Resp B/P (MAP) Pulse Ox O2 Delivery O2 Flow Rate FiO2 09/04/18 12:00 97.6 63 18 138/81 (100) 95 09/04/18 12:00 61 09/04/18 09:52 64 153/84 09/04/18 09:51 64 153/84 09/04/18 09:00 Room Air 09/04/18 08:00 66 09/04/18 08:00 97.7 64 18 153/84 (107) 95 09/04/18 06:30 62 151/86 (107) 09/04/18 05:49 167/106 09/04/18 05:30 60 167/106 (126) 09/04/18 04:30 97.2 60 18 188/90 (122) 96 09/04/18 04:00 52 09/04/18 02:15 154/88 (110) 09/04/18 01:46 179/86 09/04/18 01:30 60 179/86 (117) 09/04/18 00:00 60 09/04/18 00:00 97.9 60 18 150/88 (108) 99 09/03/18 22:15 68 151/71 (97) 09/03/18 21:30 185/68 09/03/18 21:30 64 185/68 (107) 09/03/18 21:00 Room Air 09/03/18 20:00 63 09/03/18 20:00 97.7 63 18 148/76 (100) 99 Intake and Output 09/03/18 09/04/18 19:00 07:00 Intake Total 360 ml 500 ml Output Total 550 ml Balance -190 ml 500 ml Intake Oral 360 ml IV Total 500 ml Output Urine Total 550 ml # Voids 3 Height (Feet): 5 Height (Inches): 9.00 Weight (Pounds): 143 Objective WDWN NAD clear breath sounds bilaterally without rhonchi or wheeze [id number] without MRG NABS nontender no HSM no CCE nonfocal Luis Mcfarlane MD Sep 04, 2018 16:57
--- NOTE | 2018-09-04 17:00 | Consultation ---
DATE OF CONSULTATION: 09/04/2018 NEPHROLOGY CONSULTATION CONSULTING PHYSICIAN: Milagro Parker M.D. ATTENDING PHYSICIAN: Luis Mcfarlane M.D. REASON FOR CONSULTATION: Elevated BUN and creatinine. HISTORY OF PRESENT ILLNESS: This is a 68-year-old female, who was admitted by the attending physician for blood pressure out of control. The patient is rather confused, disorganized, and unable to give any consistent information. I am asked to see the patient for the blood pressure control and elevated BUN and creatinine. PAST MEDICAL HISTORY: 1. Hypertensive cardiovascular disease. 2. Chronic kidney disease, most likely reflecting hypertensive nephrosclerosis. 3. Coronary artery disease. 4. Type 2 diabetes mellitus. 5. Psychiatric disorder. 6. Hypercholesterolemia. 7. Status post CVA. MEDICATIONS: IV fluids, Tylenol as needed, amitriptyline, amlodipine, ascorbic acid, atorvastatin, clonidine, Plavix, Lexapro, Zetia, subcutaneous heparin, insulin sliding scale, metoprolol, Januvia, vitamin D. ALLERGIES: No known drug allergies. SOCIAL HISTORY: Unable to obtain secondary to mental status. FAMILY HISTORY: Unable to obtain secondary to mental status. REVIEW OF SYSTEMS: Unable to obtain secondary to mental status. PHYSICAL EXAMINATION: GENERAL: This is an elderly female, who is in no acute distress. VITAL SIGNS: Blood pressure 153/84, pulse 64 regular, respirations 20, and temperature 98. HEENT: Head is normocephalic and atraumatic. Pupils are equal, round, and reactive to light. NECK: Supple. Trachea midline. There was no lymphadenopathy or thyromegaly. LUNGS: Clear to auscultation and percussion. HEART: Regular rate and rhythm without rubs, murmurs, or gallops. ABDOMEN: Soft and nontender. Bowel sounds were active. EXTREMITIES: No clubbing, cyanosis, or edema. NEUROLOGIC: She is alert, but confused. She has extrapyramidal movements. There were no gross focal findings. LABORATORY AND ANCILLARY DATA: CBC, hematocrit 30.1, otherwise within normal limits. Creatinine 2.1, BUN 28, EGFR 28.5. Urinalysis 4+ protein, sediment with microscopy, 5 to 10 white blood cells. Imaging records, head CT, chronic changes. EKG shows a normal sinus rhythm, left ventricular hypertrophy. ASSESSMENT: 1. Chronic kidney disease stage 4 due to diabetic nephropathy. 2. Hypertensive cardiovascular disease. 3. Chronic kidney disease, most likely reflecting hypertensive nephrosclerosis. 4. Coronary artery disease. 5. Type 2 diabetes mellitus. 6. Psychiatric disorder. 7. Hypercholesterolemia. 8. Status post CVA. PLAN: 1. Continue current therapy. 2. Avoid nephrotoxic medications. Thank you, Dr. Mcfarlane, for letting me to participate in the care of this patient. Milagro Parker M.D. DR: Sandra JOB#: [id number] CC: MYA
--- NOTE | 2018-09-08 07:21 | Discharge Summary ---
Discharge Summary Discharge Summary _ DATE OF ADMISSION: 09/01/2018 DATE OF DISCHARGE: 09/04/2018 DISCHARGED BY: Dr. Mcfarlane REASON FOR ADMISSION: 68 years old female with past medical history of coronary artery disease, diabetes mellitus, hypertension, hypercholesterolemia, history of CVA, presented to emergency department from the doctor's office for evaluation and management of significantly elevated blood pressure. Upon evaluation blood pressure was 250/124. Laboratory workup revealed stable electrolytes, BUN 28, creatinine 2.3 ,glucose 89. Troponin -0.005. Pro BNP 1196. EKG revealed normal sinus rhythm, no acute ischemic changes. Albumin 4.3. Urine toxicology screen was negative. No leukocytosis, stable hemoglobin and hematocrit. CT of the head revealed age-indeterminate, but suspected old right basal ganglia and internal capsule lacunar infarcts. Negative for acute intracranial bleeding or mass-effect. In emergency department patient received antihypertensive medication with some improvement in blood pressure. Patient was subsequently admitted to telemetry floor for further management CONSULTANTS: validation technician Dr. Treviño psychiatrist [facility] COURSE: Patient admitted to telemetry floor. Patient initially started on the IV fluids with close monitoring of renal parameters and electrolytes. Nephrology consult was requested. IV fluids stopped after 1 L. Antihypertensive medication regimen was optimized and titrated to keep blood pressure under control.. Fall precautions were maintained Patient was working with physical therapy. Antiplatelet therapy with Plavix and statin were continued. DVT prophylaxis provided. Blood sugar was managed with Januvia. Manager Acute followed . Per validation technician, patient had chronic kidney disease stage IV due to diabetic nephropathy and reflecting hypertensive nephrosclerosis. Renal parameters and electrolytes were closely monitored. Electrolytes corrected as needed. Nephrotoxic medication were avoided. Psychiatrist followed. Reality orientation and supportive therapy provided. Patient started on Elavil and Lexapro. Blood pressure stabilized. Patient clinically improved. Patient was stable for discharge home with home health services to follow. FINAL DIAGNOSES: Hypertensive crisis Chronic kidney disease stage IV due to diabetic nephropathy and reflecting hypertensive nephrosclerosis Type 2 diabetes mellitus Hypertensive cardiovascular disease Hypercholesterolemia Coronary artery disease History of CVA Major depressive disorder Anxiety disorder DISCHARGE MEDICATIONS: See Medication Reconciliation list. DISCHARGE INSTRUCTIONS: Patient was discharged home with home health services. Follow up with primary care provider in one week. I have been assigned to dictate discharge summary for this account. I was not involved in the patient's management. Theresa Falcon NP Sep 08, 2018 07:21
== END 2018-09-04 14:20 | disposition home health service (06) | DRG 305 ==
LOC: EMR 16:15 → EDBEDREQ 16:23 → 2E 17:29 → EDBEDREQ 09-02 09:36
DX: I16.9 Hypertensive crisis, unspecified (principal); N18.4 Chronic kidney disease, stage 4 (severe); F33.1 Major depressive disorder, recurrent, moderate; Z86.73 Personal history of transient ischemic attack (TIA), and cerebral infarction without residual deficits; I12.9 Hypertensive chronic kidney disease with stage 1 through stage 4 chronic kidney disease, or unspecified chronic kidney disease; E11.22 Type 2 diabetes mellitus with diabetic chronic kidney disease; E78.00 Pure hypercholesterolemia, unspecified; I25.10 Atherosclerotic heart disease of native coronary artery without angina pectoris; F41.9 Anxiety disorder, unspecified; Z91.81 History of falling; R26.81 Unsteadiness on feet; R51 Headache
CPT/HCPCS: 36415; 70450; 80053; 80307; 81001; 82248; 82962; 83690; 83880; 84443; 84484; 85025; 93005; 96374; 96375; 99285; J1815